=== PATIENT | male | born 1975 | race Caucasian/White ===

== ENCOUNTER 2025-06-27 10:45 | Emergency (ER) | payer OTHER ==
[2025-06-27] MEDS: Bacitracin Oint 1 GM U/D Packet TOP ONE (13:39)
== END 2025-06-27 13:46 | disposition home or self-care (01) ==
LOC: MW.ED 10:45
DX: S61.011A Laceration without foreign body of right thumb without damage to nail, initial encounter (principal); I10 Essential (primary) hypertension; W26.8XXA Contact with other sharp object(s), not elsewhere classified, initial encounter; Y93.89 Activity, other specified
CPT/HCPCS: 12002; 73130; 99283; J0665; J2003; 99282